=== PATIENT | female | born 1960 | race Hispanic/Latino ===

== ENCOUNTER 2017-11-20 05:30 | Emergency (ER) | payer MEDICARE ==
[~2017-11-20 05:30] MED LIST: ALBU0.63 IH; ASPI-1005 PO; ATOR40TA69 PO; CLOP75TA14 PO; FURO40TA7 PO; GABA-531 PO; GLYB-226 PO; INSU100I21 SQ; LORA10TA7 PO; LOSA50TA25 PO; METO-408 PO; MONT10TA24 PO; OMEP40CA37 PO; SITA100T12 PO; VENL-53 PO
== END 2017-11-20 05:49 | disposition home or self-care (01) ==
LOC: EDH 05:30
DX: E11.65 Type 2 diabetes mellitus with hyperglycemia (principal); I10 Essential (primary) hypertension; F41.9 Anxiety disorder, unspecified
CPT/HCPCS: 82948

== ENCOUNTER 2018-12-26 06:41 | Emergency (ER) | payer MEDICARE ==
[~2018-12-26 06:41] MED LIST changes: -GLYB-226 PO; +GLYB1TAB30 PO; -LOSA50TA25 PO; +LOSA50TA64 PO; +OMEP40CA13 PO; -OMEP40CA37 PO
[2018-12-26 07:55] LABS: RAPID GROUP A STREP NEGATIVE (NEGATIVE)
[2018-12-26] MEDS ORDERED: HYDRALAZINE HCL 25 MG TABLET ONE (08:23)
[2018-12-26] MEDS ORDERED: CEFTRIAXONE SODIUM 1 GM ONE (09:57)
[2018-12-26] MEDS ORDERED: LIDOCAINE HCL 1% 20 ML VIAL ONE (09:57)
[2018-12-26] MEDS ORDERED: LIDOCAINE HCL 2% VISCOUS 15 ML UDCUP ONE ×2 (09:57→10:21)
== END 2018-12-26 10:35 | disposition home or self-care (01) ==
LOC: EDH 06:41
DX: J06.9 Acute upper respiratory infection, unspecified (principal); I10 Essential (primary) hypertension; E11.9 Type 2 diabetes mellitus without complications; E78.00 Pure hypercholesterolemia, unspecified
CPT/HCPCS: 71045; 87804 ×2; 87880; 96372; 99285; J0696

== ENCOUNTER 2020-03-21 15:09 | Emergency (ER) | payer MEDICARE ==
[~2020-03-21 15:09] MED LIST changes: -MONT10TA24 PO; +MONT10TA96 PO
[2020-03-21 15:48] LABS: BASOPHILS % (AUTO) 0.5 % (0.0-5.0); EOSINOPHILS % (AUTO) 3.9 % (0.0-8.0); HEMATOCRIT 35.5 % (36-48); LYMPHOCYTES % (AUTO) 32.4 % (21.0-51.0); MEAN CORPUSCULAR HEMOGLOBIN 29.3 pg (27.0-33.0); MEAN CORPUSCULAR VOLUME 88.8 fL (79-99); MONOCYTES % (AUTO) 5.5 % (3.0-13.0); NEUTROPHILS % (AUTO) 57.3 % (40.0-77.0); PLATELET COUNT (AUTO) 311 K/uL (130-400); RED CELL DISTRIBUTION WIDTH 12.9 % (11.0-15.5); WHITE BLOOD COUNT (AUTO) 9.5 K/uL (4.8-10.8)
[2020-03-21 15:58] LABS: CREATININE 1.2 mg/dL (0.5-1.5); POTASSIUM 5.1 mmol/L (3.5-5.1)
[2020-03-21 16:03] LABS: ALBUMIN 3.7 g/dL (3.5-5.0); BILIRUBIN,TOTAL 0.3 mg/dL (0.2-1.0); TOTAL PROTEIN, SERUM 7.8 g/dL (6.0-8.3)
[2020-03-21 16:14] LABS: B-TYPE NATRIURETIC PEPTIDE 174 pg/mL (0-100)
== END 2020-03-21 18:30 | disposition home or self-care (01) ==
LOC: EDH 15:09
DX: I10 Essential (primary) hypertension (principal); E78.00 Pure hypercholesterolemia, unspecified; E11.9 Type 2 diabetes mellitus without complications; Z79.899 Other long term (current) drug therapy
CPT/HCPCS: 36415; 71045; 80053; 82550; 83880; 84484; 85025; 93005